=== PATIENT | male | born 1995 | race American Indian/Alaskan Native ===

== ENCOUNTER 2016-11-21 21:58 | Emergency (ER) | payer OTHER ==
[2016-11-21 22:06] VITALS: BP 139/96; PULSE 78; RESP 18; TEMP 98.3; O2SAT 100
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
== END 2016-11-21 23:28 | disposition home or self-care (01) ==
LOC: H.ER 21:58
DX: S79.912A Unspecified injury of left hip, initial encounter (principal); V13.4XXA Pedal cycle driver injured in collision with car, pick-up truck or van in traffic accident, initial encounter; Y93.9 Activity, unspecified